=== PATIENT | female | born 1985 | race Caucasian/White ===

== ENCOUNTER 2019-04-25 04:08 | Inpatient (IN) ==
[2019-04-25] MEDS ORDERED: OXYTOCIN 30 UNITS/500 ML BAG IV PRN ×3 (04:37→11:04)
[2019-04-25] MEDS: LACTATED RINGER'S 1,000 ML IV PRN ×2 (04:45→06:30)
--- NOTE | 2019-04-25 04:53 | History & Physical Report ---
Date of Service April 25, 2019 Assessment & Plan (1) 38 weeks gestation of : (2) Recurrent UTI: (3) Supervision of normal intrauterine in multigravida: admit, iv, labs. can ambulate with intermittent monitoring. ok for epidural when desires. may need pitocin augmentation, reviewed. (4) H/O type A viral hepatitis: pt and spouse say she gave us wrong history, in documented as hep b history, had neg hep b dna load, hep b surface antigen neg. (5) SROM (spontaneous rupture of membranes): History of Present Illness Chief Complaint: leaking clear fluid since 3am today Primary Care Provider: NO PCP 34yo at 38+wks ega presents to L&D with above cc. Feeling some ctx, thought they were every 3-5 min. Painful. Has been walking all day. +FM. No vb. pnc c/b 1. Recurrent uti, saw urology, was supposed to be on macrobid suppression--not using see below 2. Hepatitis A as 5yo (states she told us incorrectly that it was hepatitis B) pnl rh pos, rubella immune, gbs negative obh: x 1 gynh: no stds, normal pap smears pmh: h/o hepatitis a psh: appendectomy Allergies Allergy/AdvReac Type Severity Reaction Status Date / Time No Known Drug Allergies Allergy Verified 04/23/19 13:58 nitrofurantoin AdvReac numbness Verified 04/23/19 13:58 [From Macrobid] Home Medications Home Medications Medication Instructions Recorded Confirmed Type prenat.vits,shahram,woc-tens-xtsmb PO 03/20/19 04/23/19 History Patient History Medical History History of varicella Surgical History S/P appendectomy at age 16 Social History marital status: Smoking Status: Never smoker Hx Alcohol Use: No Review of Systems as per Subjective / HPI Physical Exam Constitutional: WD/WN, vitals as above Respiratory: normal respiratory effort, lungs clear to auscultation Cardiovascular: Rate/Rhythm: regular rate and regular rhythm Gastrointestinal (Abdomen): soft gravid nt efw 6.5# Musculoskeletal: no edema nontender calves Neurologic: grossly normal Psychiatric: A+Ox3, euthymic affect Genitourinary: Manual OB Exam: + cervical dilation 5 cm, + cervical effacement 100%, + station 0 and + amniotic fluid (gross srom) clear OB Exam Monitor Tracing: + external FHT monitor used (120 moderate variability), + external uterine monitor used (q7), + category I and + normal FHT variability Results & Data Vital Signs (Past 12 Hours) Vital Signs Pulse BP 04/25/19 04:20 71 109/66 Code Status & VTE Plan VTE Prophylaxis Plan VTE Prophylaxis will be ordered: No
[2019-04-25 05:01] LABS: Hematocrit (blood only) 33.5 % (37-47); Hemoglobin 11.3 g/dL (12.0-16.0); Mean Corpuscular Hemoglobin 29.7 pg (25-34); Mean Corpuscular Volume 87.9 fL (80-100); Mean Platelet Volume 9.4 fL (7.4-10.4); Platelet Count 200 K/uL (130-400); RDW Coefficient of Variation 14.5 % (11.5-14.5); RDW Standard Deviation 46.8 fL (36.4-46.3); Red Blood Count 3.81 M/uL (4.2-5.4); White Blood Count 10.39 K/uL (4.8-10.8)
[2019-04-25 05:27] LABS: Mean Corpuscular Hgb Conc 33.7 g/dL (32-36)
[2019-04-25] MEDS ORDERED: fentaNYL citrate 100 MCG/2 ML VIAL ONE (05:58)
[2019-04-25] MEDS ORDERED: BUPIVACAINE 0.25% 30 ML VIAL ONE (05:58)
[2019-04-25] MEDS ORDERED: ePHEDrine sulfate 50 MG/ML AMP ONE (05:58)
[2019-04-25] MEDS ORDERED: fentaNYL 2MCG/ML ROPIV 1.25MG/ML 100 ML BAG EPI ONE (05:59)
[2019-04-25] MEDS ORDERED: fentaNYL 2MCG/ML ROPIV 1.25MG/ML 100 ML BAG EPI PRN (06:21)
[2019-04-25] MEDS ORDERED: DiphenhydrAMINE HCL 50 MG/ML VIAL IV PRN (06:21)
[2019-04-25] MEDS ORDERED: ONDANSETRON INJ 2 MG/ML 2 ML VIAL IV PRN (06:21)
[2019-04-25] MEDS ORDERED: ePHEDrine sulfate 50 MG/ML AMP IV PRN (06:21)
[2019-04-25] MEDS ORDERED: NALOXONE HCL 0.4 MG/1 ML VIAL/CARP IV PRN (06:21)
[2019-04-25] MEDS ORDERED: NALBUPHINE HCL INJ 10 MG/ML AMP IV PRN (06:21)
[2019-04-25] MEDS ORDERED: NALOXONE HCL 1 MG in SODIUM CHLORIDE 0.9% 1000ML 1,000 ML IV PRN (06:21)
--- NOTE | 2019-04-25 06:24 | Anesthesiology Consultation ---
Date of Service April 25, 2019 Assessment & Plan (1) Encounter for pre-operative examination: Chart Review Chart Review: Patient NOT seen in Pre Admission Testing and Acceptable Risk for Labor Epidural Consults Requested none History Height/Weight Height: 5 ft 2 in Weight: 65.771 kg Allergies Allergy/AdvReac Type Severity Reaction Status Date / Time nitrofurantoin AdvReac numbness Verified 04/23/19 13:58 [From Macrobid] Medications Home Medications Medication Instructions Recorded Confirmed Last Taken prenat.vits,shahram,mih-qopj-judmr 1 tab PO DAILY 03/20/19 04/25/19 04/24/19 17:00 Active Medications Generic Name Dose Route Start Last Admin Trade Name Freq PRN Reason Stop Dose Admin Lactated Ringer's 1,000 mls @ 125 mls/hr 04/25/19 04:37 04/25/19 06:30 Lr IV 04/27/19 04:36 125 mls/hr .Q8H PRN Administration L&D Protocol Protocol Past Medical History Medical History H/O type A viral hepatitis As a 5 year old Recurrent UTI (Acute) History of varicella Exercise / Class Metabolic Activity II 4-5 Yardwork/Stairs/Walk up hill Past Surgical History Surgical History S/P appendectomy at age 16 Past Anesthesia History No Hx of Anesthesia Complications and No Family Hx of Anesthesia Complications History of PONV No Hx of PONV and No Hx of Motion Sickness Social History Smoking Status: Never smoker Do You Dip or Chew Tobacco: No Hx Alcohol Use: No Hx Substance Use: No Physical Exam Vital Signs Last Vital Signs Temp 36.5 C 04/25/19 06:18 Pulse 75 04/25/19 06:41 Resp 18 04/25/19 06:18 BP 116/65 04/25/19 06:41 Pulse Ox 100 04/25/19 06:37 Testing Laboratory Results 04/25/19 04:50
--- NOTE | 2019-04-25 10:45 | Delivery Summary ---
Vaginal Delivery Summary Date of Service April 25, 2019 Findings: Viable female infant with Apgars of 9 and 9. Baby delivered over a midline second-degree laceration. Cord blood samples obtained. Placenta delivered spontaneously. Midline laceration repaired with 4-0 Vicryl in a routine fashion. Estimated blood loss 300 cc. Labor course: The patient is a 34-year-old 2 para 1 with an EDC of 04 May at 38+ weeks gestational age who presented to labor and delivery with spontaneous rupture of membranes. Patient subsequently had onset of contractions and presented to labor and delivery. Patient's course was remarkable for a chronic E. coli infection. The patient was to be on suppressive Macrobid therapy but declined. The patient also had stated at her first visit that she had chronic hepatitis B. Her hepatitis B surface antigen was negative, and her laboratory values for viral titer were also negative. The patient's states that the patient had hepatitis a and not hepatitis B. Laboratory values for the show blood type of O+, antibody negative, rubella immune, hepatitis B negative, she declined genetic screening, she had an elevated 1 hour Glucola at 16 weeks, normal 2-hour glucose tolerance test at 16 and 28 weeks, she had a negative third trimester beta strep culture. Upon admission the patient was 5 cm dilated with gross rupture of membranes. She became uncomfortable and anesthesia was consulted and an epidural was placed. After placement of the epidural the patient's contractions spaced out Pitocin augmentation was initiated. Delivering physician assumed care for the patient at this point. Patient progressed to full dilatation and began her second stage. She pushed for only 5 minutes delivering the viable female cord was clamped and cut. Cord blood samples were obtained and the placenta was delivered spontaneously. Inspection of the perineum showed a midline second- degree laceration which was repaired with 4-0 Vicryl. Estimated blood loss 300 cc. Sponge and needle count was correct.
[2019-04-25] MEDS ORDERED: ACETAMINOPHEN 325 MG TAB PO PRN (11:04)
[2019-04-25] MEDS ORDERED: HYDROCORTISONE ACETATE 25 MG SUPP PR PRN (11:04)
[2019-04-25] MEDS ORDERED: BENZOCAINE 20% AER SPR 82.5 GM CAN EXT PRN (11:04)
[2019-04-25] MEDS ORDERED: SUPERCREAM 0.870% 15 GM JAR EXT PRN (11:04)
[2019-04-25] MEDS ORDERED: DIPHTHERIA/TETANUS/PERTUSSIS 0.5 ML SYR/VIAL IM ONE (11:04)
--- NOTE | 2019-04-25 11:04 | Anesthesia Procedure Note ---
Date of Service April 25, 2019 Anesthesia Post Epidural Note Vital Signs Vital Signs: Temp Pulse Resp BP Pulse Ox 36.9 C 72 20 107/62 85 L 04/25/19 07:01 04/25/19 10:53 04/25/19 10:38 04/25/19 10:53 04/25/19 10:23 Pain Intensity Bilateral Abdomen: Pain Intensity: 3 Notes Mental Status: alert / awake / arousable and participated in evaluation Nausea / Vomiting: adequately controlled Pain: adequately controlled Airway Patency, RR, SpO2: stable & adequate BP & HR: stable & adequate Hydration State: stable & adequate Neuraxial Anesthesia: was administered and sensory block is resolving Anesthetic Complications: no major complications apparent and Pt Satisfied with anesthetic care Epidural: Removed without complications and With tip intact
[2019-04-25] MEDS: IBUPROFEN 600 MG TAB PO PRN ×2 (17:59→21:25)
[2019-04-25] MEDS: DOCUSATE SODIUM 100 MG CAP PO SCH (20:38)
[2019-04-26] MEDS: IBUPROFEN 600 MG TAB PO PRN ×2 (01:06→08:09)
[2019-04-26] MEDS: ACETAMINOPHEN W/CODEINE #3 1 TAB PO PRN ×2 (01:10→08:09)
[2019-04-26 06:23] LABS: Hematocrit (blood only) 30.9 % (37-47); Hemoglobin 10.5 g/dL (12.0-16.0); Mean Corpuscular Hemoglobin 30.4 pg (25-34); Mean Corpuscular Volume 89.6 fL (80-100); Mean Platelet Volume 9.3 fL (7.4-10.4); Platelet Count 189 K/uL (130-400); RDW Coefficient of Variation 14.7 % (11.5-14.5); RDW Standard Deviation 48.3 fL (36.4-46.3); Red Blood Count 3.45 M/uL (4.2-5.4); White Blood Count 11.41 K/uL (4.8-10.8)
[2019-04-26] MEDS ORDERED: FERROUS SULFATE 325 MG TAB PO SCH (08:00)
[2019-04-26] MEDS ORDERED: PRENATAL VITAMIN 1 TAB PO SCH (08:00)
[2019-04-26] MEDS: DOCUSATE SODIUM 100 MG CAP PO SCH (08:10)
--- NOTE | 2019-04-26 08:48 | Obstetrical Progress Note ---
Date of Service April 26, 2019 Assessment & Plan (1) Supervision of normal intrauterine in multigravida: - doing well - desires d/c - instructions given - f/u in 6 weeks for pp check Subjective Ambulation: ambulating normally Voiding: no voiding problems Diet Tolerance:: regular diet Feeding Type:: breast feeding desires d/c Physical Exam Constitutional WD/WN, vitals as above Gastrointestinal (Abdomen) Fundus firm below umbilicus Musculoskeletal No deep calf tenderness Results & Data Vital Signs (Past 12 Hours) Vital Signs Temp Pulse Resp BP Pulse Ox 04/26/19 07:45 98.2 F 64 14 89/54 L 98 04/26/19 03:25 98.1 F 69 16 105/70 04/25/19 23:30 98.2 F 81 18 103/69
[2019-04-26] MEDS ORDERED: BISACODYL 5 MG TABEC PO SCH (20:00)
== END 2019-04-26 14:42 | disposition home or self-care (01) | DRG 806 ==
LOC: OPB 04:08 → 4S1 04:09 → 4S2 17:21